=== PATIENT | female | born 1950 | race Hispanic/Latino ===

== ENCOUNTER 2017-10-19 08:03 | Day surgery (SDC) | payer OTHER ==
[~2017-10-19] VITALS: Ht 162.6 cm; Wt 96.2 kg
[~2017-10-19 08:03] MED LIST: AMLO10TA2 PO; ATOR40TA71 PO; HYDR-4153 PO; INSU100I21 SQ; INSU200I SQ; LOSA25TA21 PO; METF10004 PO; METO-409 PO; SODIUM CHLORIDE 0.9% 1000ML 1,000 ML IV ONE; XALA2.5OS OU
[2017-10-19 08:09] VITALS: BP 160/59
[2017-10-19] MEDS ORDERED: PROPOFOL 10 MG/ML 20ML VIAL IV ONE ×2 (09:48)
[2017-10-19 10:10] VITALS: BP 89/45
== END 2017-10-19 10:40 | disposition home or self-care (01) ==
LOC: DAH 08:03
PROVIDERS: ATTEND Internal Medicine Gastroenterology
DX: Z12.11 Encounter for screening for malignant neoplasm of colon (principal); K63.89 Other specified diseases of intestine; I10 Essential (primary) hypertension; E78.4 Other hyperlipidemia; E11.9 Type 2 diabetes mellitus without complications; M19.90 Unspecified osteoarthritis, unspecified site; Z79.899 Other long term (current) drug therapy; Z96.698 Presence of other orthopedic joint implants; Z79.4 Long term (current) use of insulin
CPT/HCPCS: 45378; 82948 ×2; 93005; A4606; J2704 ×2; J7030

== ENCOUNTER → 2024-06-15 | Outpatient (CLI) | payer OTHER ==
[~2024-06-15] MED LIST changes: +AMLO-258 PO; -AMLO10TA2 PO; +FENTanyl CITRate PF 50 MCG/1 ML 2ML VIAL ONE; -HYDR-4153 PO; +HYDR25TA67 PO; -INSU100I21 SQ; +INSU100I22 SQ; -LOSA25TA21 PO; +LOSA25TA41 PO; +METF-446 PO; -METF10004 PO; -SODIUM CHLORIDE 0.9% 1000ML 1,000 ML IV ONE
== END | disposition home or self-care (01) ==
LOC: SHCH 11:12
PROVIDERS: ATTEND Internal Medicine
DX: R09.89 Other specified symptoms and signs involving the circulatory and respiratory systems (principal)
CPT/HCPCS: 93880; J3010